=== PATIENT | male | born 1990 | race African-American/Black ===

== ENCOUNTER 2022-03-06 02:32 | Emergency (ER) | payer SELFPAY ==
--- OUTSIDE RECORDS SUMMARY | 2022-03-06 02:35 | XMS REPORT | Continuity of Care Document ---
:1990 Author Organization [facility] t Address [address] [place] [address] Care Team Providers Name Role Phone Pcp, Patient Does Not Have A Primary Care Physician [id number] MILO OLIVEROS Attending Clinician Unavailable Milo Oliveros MD Attending Clinician Doctor Unassigned, [place] Attending Clinician Unavailable Leo Peña DO Attending Clinician Payers Payer Name Policy Type Policy Number Effective Date Expiration Date S ource Problems Condition Condition Condition Status Onset Resolution Last Treating Co mments Source Name Details Category Date Date Treatment Clinician Date No known No known Disease Unive rs active active ity of problems problems [facility] Allergies, Adverse Reactions, Alerts Allergy Allergy Status Severity Reaction(s) Onset Inactive Treating Comm ents Source Name Type Date Date Clinician No Known DA Active U [facility] 8- Allergie 00:00: s 00 No Known DA Active U [facility] 07-03 Allergie 00:00: s 00 NO KNOWN Drug Active Univers ALLERGIE Class ity of S [facility] Social History Social Habit Start Date Stop Date Quantity Comments Source Exposure to 2021-09-03 2021-09-13 Not sure [facility] SARS-CoV-2 (event) 00:00:00 10:36:00 Medica l Branch Sex Assigned At [birth year] [facility] 00:00:00 00:00:00 Medical Branch Smoking Status Start Date Stop Date Source Unknown if ever smoked [facility] Medical Branch Medications Ordered Filled Start Stop Current Ordering Indication Dosage Frequency Signature Comments Components Source Medication Medication Date Date Medication? Clinician (SIG) Name Name cefTRIAXone 2021- No 500mg 500 mg, U nivers (ROCEPHIN) 09-13 Intramuscu it y of injection 17:00: 17:28 lar, ONCE, [place] 500 mg 00 :00 1 dose, On Medical 09/13/21 Branch at 1200, HARSHAL
Re ason for Anti-Infec tive: Documented Infection< br>Documen musa Infection Site: Urine
D uration of Therapy: Other (see Comments) azithromyci 2021- No 1000mg 1,000 mg, [facility] n 09-13 Oral, ity of (ZITHROMAX) 16:00: 17:27 ONCE, 1 [place] tablet 00 :00 dose, On Medical 1,000 mg Mon09/13/21 Branc h at 1100, HARSHAL
Re ason for Anti-Infec tive: Documented Infection< br>Documen musa Infection Site: Pelvic
Duration of Therapy: Other (see Comments) cefTRIAXone 2019-03 Yes 250mg 250 mg, Un cristi (ROCEPHIN) 03-31 Intramuscu ity of injection 17:15: lar, Q24H, [place] 250 mg 00 First dose Medical on Day Branch 01/30/20 at 1115, Until Discontinu ed, HARSHAL
Re ason for Anti-Infec tive: Empiric Therapy for Suspected Infection< br>Empiric Therapy Site: Pelvic
Duration of therapy: 72 hours azithromyci 2019-03- No 1000mg 1,000 mg, [facility] n 03-31 Oral, ity of (ZITHROMAX) 17:15: 16:16 ONCE, 1 [place] tablet 00 :00 dose, [facility] 1,000 mg 01/30/20 Branch at 1115, HARSHAL
Re ason for Anti-Infec tive: Empiric Therapy for Suspected Infection< br>Empiric Therapy Site: Pelvic
Duration of therapy: 72 hours cyclobenzap 2014-03 Yes 5mg Take 1 Tab Univers rine 2-29 by mouth 3 ity of (FLEXERIL) 00:00: [place] 5 [place] tablet 00 times Medical daily. Branch cyclobenzap 2014-03 Yes 5mg Take 1 Tab Univers rine 2-29 by mouth 3 ity of (FLEXERIL) [place] 5 mg tablet 00 times Medical daily. Branch cyclobenzap 2014-03 Yes 5mg Take 1 Tab Univers rine 2-29 by mouth 3 ity of (FLEXERIL) 00:00: [place] 5 mg tablet 00 times Medical daily. Branch Vital Signs Vital Name Observation Time Observation Value Comments Source Systolic blood 2021-09-13 15:36:00 114 mm[Hg] Univer [facility]ity of [facility] Diastolic blood 2021-09-13 15:36:00 71 mm[Hg] Unive rsity of [facility] Heart rate 2021-09-13 15:36:00 73 /min [facility] Body temperature 2021-09-13 15:36:00 36.72 Nany [facility] Respiratory rate 2021-09-13 15:36:00 14 /min [facility] Body weight 2021-09-13 15:36:00 70.308 kg [facility] BMI 2021-09-13 15:36:00 24.28 kg/m2 [facility] Oxygen saturation in 2021-09-13 15:36:00 99 /min [facility] Arterial blood by [facility] Pulse oximetry Branch Systolic blood 2020-01-30 16:00:00 134 mm[Hg] Univer sity of [facility] Diastolic blood 2020-01-30 16:00:00 54 mm[Hg] Unive rsity [facility] Heart rate 2020-01-30 16:00:00 99 /min [facility] Body temperature 2020-01-30 16:00:00 37.06 Nany [facility] Respiratory rate 2020-01-30 16:00:00 18 /min [facility] Body weight 2020-01-30 16:00:00 70.308 kg Universi ty [facility] BMI 2020-01-30 16:00:00 24.28 kg/m2 [facility] Oxygen saturation in 2020-01-30 16:00:00 97 /min University Arterial blood by [facility] Pulse oximetry Branch Respiratory 2020-07-06 02:53:15 No respiratory distress /min 02 Sat by Pulse 2020-07-06 02:53:15 99 /min Oximetry Body Mass Index 2020-07-06 02:53:15 22.9 Height 2020-07-06 02:53:15 175.26\S\69 Pulse Rate 2020-07-06 02:53:15 78 /min Respiratory Rate 2020-07-06 02:53:15 16 /min Temperature 2020-07-06 02:53:15 36.7\S\98.1 Weight 2020-07-06 02:53:15 84872.817\S\2480 Weight Measurement 2020-07-06 02:53:15 Estimated by Staff Method Respiratory 2020-07-03 18:42:59 No respiratory distress /min 02 Sat by Pulse 2020-07-03 18:42:59 99 /min Oximetry Body Mass Index 2020-07-03 18:42:59 22.9 Height 2020-07-03 18:42:59 175.26\S\69 Pulse Rate 2020-07-03 18:42:59 78 /min Respiratory Rate 2020-07-03 18:42:59 16 /min Temperature 2020-07-03 18:42:59 36.7\S\98.1 Weight 2020-07-03 18:42:59 46816.817\S\2480 Weight Measurement 2020-07-03 18:42:59 Estimated by Staff Method Respiratory 2020-07-03 18:30:44 No respiratory distress /min 02 Sat by Pulse 2020-07-03 18:30:44 98 /min Oximetry Body Mass Index 2020-07-03 18:30:44 22.9 Height 2020-07-03 18:30:44 175.26\S\69 Pulse Rate 2020-07-03 18:30:44 88 /min Respiratory Rate 2020-07-03 18:30:44 16 /min Temperature 2020-07-03 18:30:44 36.7\S\98.1 Weight 2020-07-03 18:30:44 74232.817\S\2480 Weight Measurement 2020-07-03 18:30:44 Estimated by Staff Method Respiratory 2020-07-03 16:58:31 No respiratory distress /min 02 Sat by Pulse 2020-07-03 16:58:31 98 /min Oximetry Body Mass Index 2020-07-03 16:58:31 22.9 Height 2020-07-03 16:58:31 175.26\S\69 Pulse Rate 2020-07-03 16:58:31 88 /min Respiratory Rate 2020-07-03 16:58:31 16 /min Temperature 2020-07-03 16:58:31 36.7\S\98.1 Weight 2020-07-03 16:58:31 80004.817\S\2480 Weight Measurement 2020-07-03 16:58:31 Estimated by Staff Method Respiratory 2020-07-03 16:57:30 No respiratory distress /min 02 Sat by Pulse 2020-07-03 16:57:30 98 /min Oximetry Body Mass Index 2020-07-03 16:57:30 22.9 Height 2020-07-03 16:57:30 175.26\S\69 Pulse Rate 2020-07-03 16:57:30 88 /min Respiratory Rate 2020-07-03 16:57:30 16 /min Temperature 2020-07-03 16:57:30 36.7\S\98.1 Weight 2020-07-03 16:57:30 14208.817\S\2480 Weight Measurement 2020-07-03 16:57:30 Estimated by Staff Method Respiratory 2020-07-03 16:19:08 No respiratory distress /min 02 Sat by Pulse 2020-07-03 16:19:08 98 /min Oximetry Body Mass Index 2020-07-03 16:19:08 22.9 Height 2020-07-03 16:19:08 175.26\S\69 Pulse Rate 2020-07-03 16:19:08 88 /min Respiratory Rate 2020-07-03 16:19:08 16 /min Temperature 2020-07-03 16:19:08 36.7\S\98.1 Weight 2020-07-03 16:19:08 42988.817\S\2480 Weight Measurement 2020-07-03 16:19:08 Estimated by Staff Method 02 Sat by Pulse 2020-07-03 15:41:12 98 /min Oximetry Body Mass Index 2020-07-03 15:41:12 22.9 Height 2020-07-03 15:41:12 175.26\S\69 Pulse Rate 2020-07-03 15:41:12 88 /min Respiratory Rate 2020-07-03 15:41:12 16 /min Temperature 2020-07-03 15:41:12 36.7\S\98.1 Weight 2020-07-03 15:41:12 24021.817\S\2480 Weight Measurement 2020-07-03 15:41:12 Estimated by Staff Method Body Mass Index 2020-07-03 15:29:25 22.9 Height 2020-07-03 15:29:25 175.26\S\69 Pulse Rate 2020-07-03 15:29:25 88 /min Respiratory Rate 2020-07-03 15:29:25 16 /min Temperature 2020-07-03 15:29:25 36.7\S\98.1 Weight 2020-07-03 15:29:25 64527.817\S\2480 Weight Measurement 2020-07-03 15:29:25 Estimated by Staff Method 02 Sat by Pulse 2020-07-03 15:29:25 98 /min Oximetry 02 Sat by Pulse 2020-07-03 15:25:51 98 /min Oximetry Body Mass Index 2020-07-03 15:25:51 22.9 Height 2020-07-03 15:25:51 175.26\S\69 Pulse Rate 2020-07-03 15:25:51 88 /min Respiratory Rate 2020-07-03 15:25:51 16 /min Temperature 2020-07-03 15:25:51 36.7\S\98.1 Weight 2020-07-03 15:25:51 50493.817\S\2480 Weight Measurement 2020-07-03 15:25:51 Estimated by Staff Method 02 Sat by Pulse 2020-07-03 15:25:20 98 /min Oximetry Body Mass Index 2020-07-03 15:25:20 22.9 Height 2020-07-03 15:25:20 175.26\S\69 Pulse Rate 2020-07-03 15:25:20 88 /min Respiratory Rate 2020-07-03 15:25:20 16 /min Temperature 2020-07-03 15:25:20 36.7\S\98.1 Weight 2020-07-03 15:25:20 72075.817\S\2480 Weight Measurement 2020-07-03 15:25:20 Estimated by Staff Method WEIGHT 2020-07-03 15:21:00 70.531993 kg HEIGHT 2020-07-03 15:21:00 175.26 cm Procedures Procedure Date / Time Performed Performing Clinician [facility] e CONSENT/REFUSAL FOR 2021-09-13 15:30:13 Doctor Unassigned, No Un iversity [facility] DIAGNOSIS AND [facility] TREATMENT NOTICE OF PRIVACY 2021-09-13 15:25:47 Doctor Unassigned, No Univ ersity [facility] PRACTICES Name [facility] NOTICE OF PRIVACY 2020-01-30 15:56:15 Doctor Unassigned, No Univ ersity [facility] Encounters Start End Encounter Admission Attending Care Care Encounter Source Date/Time Date/Time Type Type Clinicians Facility Department ID 2020-11-10 Inpatient [facility] [id number] [facility] 11:35:00 43 2020-11-10 Inpatient [facility] [id number] [facility] 11:35:00 43 2020-07-03 Inpatient [facility] [id number] [facility] 15:19:00 21 2020-07-03 Inpatient [facility] [id number] [facility] 15:19:00 21 2021-09-13 2021-09-13 Emergency X NICKI OLIVEROS ERT [id number] Univers 10:38:00 12:50:00 MILO noel [facility] 2021-09-13 2021-09-13 Emergency NICKI Oliveros [id number] [facility] 10:38:00 12:50:00 Milo CORREA [id number] i ty of [place] [id number] [facility] [id number] [place] [id number] Branch 2021-09-13 2021-09-13 Orders Doctor RASHEED [id number] Univers 00:00:00 00:00:00 Only Unassigned, BHARATI [id number] ity of [place] [facility] [id number] [facility] [id number] [place] [address] Branch 2020-01-30 2020-01-30 Emergency Peña, [facility] [id number] [facility] 10:03:00 10:41:00 Leo Correa [id number] i ty of [place] [id number] [facility] [id number] [address] 2020-01-30 2020-01-30 Emergency X [facility] ERT [id number] Univers 09:57:00 [facility]57[facility] Results Test Description Test Time Test Comments Results Result Comments Source Complete Blood Count Auto Diff 2020-11-10 11:50:00 Test Item Value Reference Range Interpretation Comme nts White Blood Count (test code = WBCT) 4.0 x10 3/uL 4.4-10.5 L Red Blood Count (test code = RBC) 4.18 x10 6/uL 4.10-5.70 N Hemoglobin (test code = HGBT) 12.0 g/dL 13.4-17.4 L Hematocrit (test code = HCTT) 36.5 % 38.7-52.0 L Mean Corpuscular Volume (test code = MCV) 87.30 fL 80.00-100.00 N Mean Corpuscular Hemoglobin (test code = MCH) 28.7 pg 27.0-32. 5 N Mean Corpuscular HGB Conc (test code = MCHC) 32.90 g/dL 32.00-37. 50 N RDW Coefficient of Variation (test code = RDWCV) 12.9 % 11.5- 14.5 N Platelet Count (test code = PLTT) 241.0 x10 3/uL 140.0-440.0 N Mean Platelet Volume (test code = MPV) 10.0 fL Immature Granulocytes % (Auto) (test code = IMMGRAN%) 0.2 % 0.0-5.0 N Neutrophils % (Auto) (test code = NE%) 43.2 % 36.0-70.0 N Lymphocytes % (Auto) (test code = LY%) 46.4 % 12.0-44.0 H Monocytes % (Auto) (test code = MO%) 8.2 % 0.0-11.0 N Eosinophils % (Auto) (test code = EO%) 1.5 % 0.0-7.0 N Basophils % (Auto) (test code = BA%) 0.5 % 0.0-2.0 N Immature Granulocytes # (Auto) (test code = IMMGRAN#) 0.01 x10 3/uL Neutrophils # (Auto) (test code = NE#) 1.7 x10 3/uL 1.6-7.4 N Lymphocytes # (Auto) (test code = LY#) 1.86 x10 3/uL 0.50-4.60 N Monocytes # (Auto) (test code = MO#) 0.33 x10 3/uL 0.00-1.20 N Eosinophils # (Auto) (test code = EO#) 0.06 x10 3/uL 0.00-0.74 N Basophils # (Auto) (test code = BA#) 0.02 x10 3/uL 0.00-0.21 N nRBC Abs (test code = NRBCA) 0 nRBC Pct (test code = NRBCP) 0 % Comprehensive Metabolic [id number] 11:50:00 Test Item Value Reference Range Interpretation Comments SODIUM (test code = NA) 141.0 mmol/L 136.0-145.0 N Potassium,K (test code = K) 3.8 mmol/L 3.0-5.1 N Chloride (test code = CL) 105 mmol/L 98-107 N Carbon Dioxide (test code = CO2) 29 mmol/L 20-31 N Anion Gap (test code = GAP) 7 mmol/L 5-15 N Blood Urea Nitrogen (test code = 18 mg/dL 9-23 N BUN) Creatinine (test code = CREATT) 1.18 mg/dL 0.55-1.02 H Creatinine Clr Calc Pharmacy 92.37 mL/min (test code = CRCLPHA) Estimated GFR ( Sharee > 60 mL/min/1.73m2 (test code = EGFRAA) Estimated GFR (Non Afr Sharee > 60 mL/min/1.73m2 (test code = EGFRNAA) BUN/Creatinine Ratio (test code 15 ratio 10-20 N = BCRATIO) Glucose (test code = GLU) 112 mg/dL 74-106 H Osmolality,Calculated (test code 294.4 = OSMOC) Calcium (test code = CA) 9.6 mg/dL 8.3-10.6 N Bilirubin,Total (test code = 0.5 mg/dL 0.2-1.1 N BILIT) Aspartate Amino Transferase 23 U/L 0-34 N (test code = AST) Alanine Aminotransferase (test 24 U/L 10-49 N code = ALT) Total Protein (test code = TP) 7.3 g/dL 5.7-8.2 N Albumin Level (test code = ALB) 4.9 g/dL 3.2-4.8 H Globulin (test code = GLOB) 2.4 mg/dL 2.3-3.5 N Albumin/Globulin Ratio (test 2.0 ratio 0.8-2.0 N code = AGRATIO) Alkaline Phosphatase (test code 78 U/L 46-116 N = ALP) Ethanol [id number] 11:50:00 Test Item Value Reference Range Interpretation Comments Ethanol (test code = ETOH) < 3 mg/dL Drug Screen,[id number] 11:50:00 Test Item Value Reference Range Interpretation Comments PCP Phencyclidine Screen,Urine (test Negative Negative code = PCPU) Amphetamine Screen,Urine (test code Negative Negative = AMPU) Methadone Screen,Urine (test code = Negative Negative METHU) Opiate Screen,Urine (test code = Negative Negative UOPIS) Barbituates Screen,Urine (test code Negative Negative = BARBU) Benzodiazepines Screen,Urine (test Negative Negative code = UBENZS) Cocaine Screen,Urine (test code = Negative Negative UCOCS) Cannabinoid Screen,Urine (test code Negative Negative = UTHCS) Propoxyphene Screen, Urine (test Negative Negative code = UPROP) UA, Urinalysis Rflx Cult/[id number] 11:50:00 Test Item Value Reference Range Interpretation Comments Color,Urine (test code = Yellow Y UCOL) Clarity,Urine (test code = Clear Clear UCLAR) PH,Urine (test code = 6.0 5.5-8.5 UPH.XX) Specific [place],Urine >= 1.030 1.005-1.030 N (test code = USG) Blood,Urine (test code = Negative cells/uL Negative UBLD) Protein,Urine (test code = Trace mg/dL Negative A UPRO) Glucose,Urine (UA) (test Negative mg/dL Negative code = UGLU) Ketones,Urine (test code = Negative mg/dL Negative UKET) Nitrate,Urine (test code = Negative Negative UNIT) Bilirubin,Urine (test code Negative mg/dL Negative = UBIL) Urobilinogen,Urine (test 0.2 mg/dL Negative code = UURO) Leukocyte Esterase,Urine Negative cells/uL Negative (test code = ULEU) Urine [id number] 11:50:00 Test Item Value Reference Range Interpretation Comments RBC,Urine (test code = 0-1 /HPF None Seen URBC.XX) WBC,Urine (test code = None Seen /HPF None Seen UWBC.XX) Calcium Oxalate Few /HPF None Seen A Crystals,Urine (test code = UCALO) Bacteria,Urine (test code = Occasional /HPF None Seen A UBACT) Mucus,Urine (test code = Moderate /LPF None Seen A UMUC) Coronavirus PCR, COVID19 [id number] 11:50:00 Test Item Value Reference Range Interpretation Comments Coronavirus PCR, For use under Emergency COVID19 Rapid (test Use Authorization (EUA) code = SARSCOV2) only. Coronavirus PCR, Reference Range: COVID19 Rapid (test Negative code = DGCOSPZ40.1) SARS-CoV-2 PCR Result: Negative by PCR (test code = SARS-CoV-2 PCR Result:) COVID-19 Status: AsymptomaticDrug Screen,[id number] 15:49:00 Test Item Value Reference Range Interpretation Comments PCP Phencyclidine Screen,Urine (test Negative Negative code = PCPU) Amphetamine Screen,Urine (test code Negative Negative = AMPU) Methadone Screen,Urine (test code = Negative Negative METHU) Opiate Screen,Urine (test code = Negative Negative UOPIS) Barbituates Screen,Urine (test code Negative Negative = BARBU) Benzodiazepines Screen,Urine (test Negative Negative code = UBENZS) Cocaine Screen,Urine (test code = Negative Negative UCOCS) Cannabinoid Screen,Urine (test code Positive Negative A = UTHCS) Propoxyphene Screen, Urine (test Negative Negative code = UPROP)
[2022-03-06] MEDS ORDERED: TDAP (DIPHTH,PERTUSS(ACELL),TET VAC) 0.5 ML VIAL IMVAC ONE (02:54)
[2022-03-06] MEDS ORDERED: LIDOCAINE 1% MPF 5 ML VIAL ONE (02:54)
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
[2022-03-06 04:31] VITALS: TEMP 98.8
[2022-03-06 04:32] VITALS: BP 141/86
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
== END 2022-03-06 04:26 | disposition home or self-care (01) ==
LOC: ER 02:32
PROC: 0JQF0ZZ Repair Left Upper Arm Subcutaneous Tissue and Fascia, Open Approach (ICD-10-PCS; principal; 2022-03-06)
DX: S41.012A Laceration without foreign body of left shoulder, initial encounter (principal); Z72.0 Tobacco use; Z23 Encounter for immunization
CPT/HCPCS: 71045; 90471; 99284; J2001